=== PATIENT | male | born 1955 | race Caucasian/White ===

== ENCOUNTER 2020-11-11 22:58 | Observation (INO) | payer MEDICARE, SELFPAY ==
[2020-11-11 22:10] VITALS: BP 111/69; PULSE 55; RESP 18; TEMP 35.7; O2SAT 97; BMI 29.6
--- NOTE | 2020-11-11 22:33 | ADMGEN ---
This patient, Ramon Joy, was admitted to IMU Room 203-01. Patient/family oriented to hospital policies and general routines including ID bracelet, bed and alarms, visiting hours, pain management, procedures, bathroom and other care routines, personal items, smoking policy, room service/diet, and visiting hours. Information on how to activate the Rapid Response Team has been discussed. Patient/Family are encouraged to report perceived risks to care and to ask questions if they do not understand what they are told or what they should do. Pt arrived at approximately 2215 by EMS.
[2020-11-11 23:47] VITALS: BP 96/71; PULSE 54; RESP 18; TEMP 36.6; O2SAT 95
[2020-11-12] VITALS (15 sets, daily range): BP systolic 97–122; BP diastolic 62–80; PULSE 52–64; RESP 14–18; TEMP 35.8–36.3; O2SAT 93–97
--- NOTE | 2020-11-12 00:09 | PM.IMHP ---
H&P: HPI History of Present Illness Date/Time: 11/12/20 00:09 Chief Complaint: Jaw claudication, left arm pain Narrative: Ramon Joy is a 65 year old male with past medical history history of CAD, NSTEMI status post KOBE in LAD 03/30/2019, anxiety/depression, gout, diastolic dysfunction without heart failure, mixed hyperlipidemia presents the ED with complaints of left jaw claudication and left arm pain. Patient was cleaning horse stalls when he developed left jaw pain and left arm shoulder and neck pain. He states this episode did not have chest pain but he has had chest pain before he recently. Symptoms are worse with activity. Symptom onset was 3 days ago. On my evaluation patient was asymptomatic. Catheterization report 03/30/2019: Left ventricular ejection fraction 50%, lad mid vessel lesion 99% stenosis with balloon angioplasty, stent placement, balloon angioplasty and had post-stent placement stenosis of 0% and DO grade 3 flow, left circumflex distal vessel lesion 60% stenosis, RCA posterior lateral extension proximal vessel lesion 60% stenosis. Patient also had right coronary mid vessel lesion 30% stenosis. Patient was started on dual anti-platelet therapy aspirin with Plavix. Indications for catheterization were NSTEMI. Echocardiogram 03/31/2019: Left ventricular systolic function lower limit of normal, EF 50-55%, grade 2 diastolic dysfunction, trace mitral regurg. In the ED at [place]: Sodium 130. Lipase, PT, BMP, D-dimer, troponin x1, CBC, viral panel, BNP, PTT all normal or negative. With significant history heart disease, anginal like symptoms, and previous stent placement patient was started on heparin drip despite negative troponin and sent to [facility] for further workup and cardiology coverage. Review of Systems Review of Systems: Narrative: Constitutional: No Fever, No Chills, No Night Sweats, No Fatigue, No Malaise ENT/Mouth: No Hearing Changes, No Ear Pain, No Nasal Congestion, No Sinus Pain, No Hoarseness, No sore throat, No Rhinorrhea, No Swallowing Difficulty. Left jaw pain Eyes: No Eye Pain, No Redness, No Vision Changes Cardiovascular: Endorses occasional left chest pain pressure, No Palpitations, No Dyspnea on Exertion, No Orthopnea, No Claudication, No Edema Respiratory: No Cough, No Sputum, No Wheezing, No Shortness of Breath Gastrointestinal: No Nausea, No Vomiting, No Diarrhea, No Constipation, No Abdominal Pain, No Heartburn, No Hematochezia, No Melena Genitourinary: No Dysuria, No Urinary Frequency, No Hematuria, No Urinary Incontinence, No Urgency Musculoskeletal: Endorses Left upper extremity pain, neck pain, shoulder pain, jaw pain Neuro: No Weakness, No Numbness, No Paresthesias, No Loss of Consciousness, No Syncope, No Dizziness, No Headache Psych: No Anxiety/Panic, No Depression, No Insomnia Heme: No Bruising, No Bleeding Lymph: No Adenopathy Endocrine: No Polyuria, No Polydipsia, No Temperature Intolerance [facility] Past Medical History Medical History (Updated 11/12/20 @ 00:34 by Oswaldo Robert DO) Allergic rhinitis Anxiety and depression Chronic pain of left knee Coronary artery disease Degenerative joint disease (DJD) of lumbar spine Eczema Erectile dysfunction Gout Insomnia NSTEMI (non-ST elevated myocardial infarction) 03/29/2019 Primary osteoarthritis of first carpometacarpal joint of left hand Sensorineural hearing loss (SNHL) of both ears Sleep apnea Tinea corporis Surgical History Surgical History (Updated 11/12/20 @ 00:22 by Oswaldo Robert DO) H/O cardiac catheterization KOBE in LAD 03/30/2019 H/O hand surgery Left thumb DJD Family History Family History (Updated 11/12/20 @ 00:23 by Oswaldo Robert DO) Father , Emphysema, diet from MVA No problems noted. Mother , Open heart surgery No problems noted. Other Heart disease Social History Social History (Updated 11/12/20 @ 00:25 by Ayala
[2020-11-12 01:13] LABS: Troponin I < 0.012 ng/mL (0.000-0.034)
--- NOTE | 2020-11-12 02:08 | ADMGEN ---
This patient, Ramon Joy, was admitted to IMU Room 203-01 AT 0145. Patient/family oriented to hospital policies and general routines including ID bracelet, bed and alarms, visiting hours, pain management, procedures, bathroom and other care routines, personal items, smoking policy, room service/diet, and visiting hours. Information on how to activate the Rapid Response Team has been discussed. Patient/Family are encouraged to report perceived risks to care and to ask questions if they do not understand what they are told or what they should do.
[2020-11-12 03:50] LABS: Cholesterol 142 mg/dL (0-200); HDL Direct 36 mg/dL; Triglycerides 208 mg/dL (<150)
[2020-11-12 04:02] LABS: LDL Cholesterol Direct 75 mg/dL; Troponin I < 0.012 ng/mL (0.000-0.034)
[2020-11-12 07:33] LABS: Anion Gap 9 mmol/L (8-16); Blood Urea Nitrogen 21 mg/dL (9-20); Calcium 9.1 mg/dL (8.4-10.2); Carbon Dioxide 25 mmol/L (22-30); Chloride 102 mmol/L (98-107); Estimated CRCL calculation 75 ml/min; Estimated Glomerular Filt Rate > 60; Glucose 116 mg/dL (75-110); Magnesium 2.1 mg/dL (1.6-2.3); Potassium 3.4 mmol/L (3.4-5.0); Sodium 136 mmol/L (137-145)
--- NOTE | 2020-11-12 08:41 | PM.CNCAR ---
Assessment and Plan Assessment and plan (1) Unstable angina: Code(s): I20.0 - Unstable angina Status: Acute Assessment and Plan: Patient had a previous catheterization 2008 he had a stent to the LAD. At that time distal circumflex had 60% and right posterolateral branch 60% who comes with typical anginal symptoms suggestive of unstable angina. patient takes Plavix at home. He follows up with Cardiology at [facility]. risks and benefits of cardiac catheterization discussed with the patient agrees to proceed. History of Present Illness History of Present Illness Consult date/time: Date of pvbcaid64/17/20 08:41 Requesting physician: Mega Gonzales MD Consult reason: chest pain Reason For Visit: Chest Pain Narrative: This is 65-year-old patient with past medical history history of CAD, NSTEMI status post KOBE in LAD 03/30/2019Using 3.5 x 23 drug-eluting stent, previous tobacco abuse,anxiety/depression, gout, diastolic dysfunction without heart failure, mixed hyperlipidemia presents the ED with complaints of left jaw claudication and left arm pain. Patient was cleaning horse stalls when he developed left jaw pain and left arm shoulder and neck pain. this started 3 days ago. Associated with shortness of breath. Denies fever , chills, edema troponins x3 negative. EKG normal interpreted myself. Review of Systems Constitutional: Constitutional: Denies chills, Denies fever(s) and Denies poor appetite Eyes: Eyes: Denies eye discharge, Denies loss of vision, Denies eye pain and Denies photophobia ENT: Denies dizziness, Denies epistaxis, Denies nasal congestion and Denies sore throat Cardiovascular: Cardiovascular: Reports chest pain, Denies syncope, Denies pedal edema, Denies leg edema, Denies palpitations, Reports dyspnea, Reports dyspnea on exertion and Denies orthopnea Respiratory: Respiratory: Denies cough, Reports dyspnea and Denies wheezing Gastrointestinal: Gastrointestinal: Denies abdominal pain, Denies diarrhea, Denies nausea and Denies vomiting Genitourinary: Genitourinary: Denies hematuria, Denies genital lesions and Denies dysuria Musculoskeletal: Musculoskeletal: Denies arthralgias, Denies joint swelling and Denies numbness Integumentary/Breasts: Skin/Breast: Denies pruritus and Denies rash Neurologic: Denies dizziness, Denies syncope, Denies loss of vision and Denies numbness Psychiatric: Psychiatric: Denies anxiety and Denies depression Endocrine: Endocrine: Denies cold intolerance, Denies heat intolerance and Denies palpitations Hematologic/Lymphatic: Hematologic/Lymphatic: Denies easy bleeding and Denies easy bruising Allergic/Immunologic: Allergic/Immunologic: Denies urticaria and Denies wheezing [facility] Past Medical History Medical History Allergic rhinitis Anxiety and depression Chronic pain of left knee Coronary artery disease Degenerative joint disease (DJD) of lumbar spine Eczema Erectile dysfunction Gout Insomnia NSTEMI (non-ST elevated myocardial infarction) 03/29/2019 Primary osteoarthritis of first carpometacarpal joint of left hand Sensorineural hearing loss (SNHL) of both ears Sleep apnea Tinea corporis Surgical History Surgical History H/O cardiac catheterization KOBE in LAD 03/30/2019 H/O hand surgery Left thumb DJD Family History Family History Father , Emphysema, diet from MVA No problems noted. Mother , Open heart surgery No problems noted. Other Heart disease Social History Social History Social History: Retired, physically active taking care of horses Smoking packs per day: 1.5 Smoking cigarettes per day: 30.0 Years smoked: 44 Smoking pack-years: 66.00 Smoking status: Former smo
[2020-11-12] MEDS: METOPROLOL TARTRATE 12.5 MG TABLET PO (09:04)
[2020-11-12] MEDS: allopurinoL 300 MG TABLET PO (09:04)
[2020-11-12] MEDS: DULoxetine HCL 60 MG CAPSULE.DR PO (09:04)
[2020-11-12] MEDS: busPIRone HCL 5 MG TABLET PO (09:05)
[2020-11-12] MEDS: ATORVASTATIN 40 MG TABLET 80 MG PO (09:05)
[2020-11-12] MEDS: FLUoxetine HCL 20 MG CAPSULE PO (09:05)
[2020-11-12] MEDS: busPIRone HCL 2.5 MG TABLET PO (09:06)
--- NOTE | 2020-11-12 11:05 | PM.IMPN ---
Progress Note: A&P Assessment and Plan (1) Unstable angina: Code(s): I20.0 - Unstable angina Status: Acute Assessment and Plan: Presented with left jaw and left arm pain but adamantly. Patient received aspirin and Heparin drip prior to arrival; heparin has been stopped Currently asymptomatic. Dr. Johnson (Cardiology) has been consulted and appreciate input. Troponins negative x 3. Await further rec from Cardiology Monitor Will need follow up with his Coach Wirer; has appointment set up in November Additional Plan # other chronic conditions anxiety/depression: BuSpar, Xanax, Cymbalta, Prozac gout: Allopurinol hyperlipidemia: Lipitor CAD, status post NSTEMI 03/30/2020 with KOBE in LAD: Plavix, nitroglycerin hypertension: Lopressor DJD: Tramadol, prednisone insomnia: Trazodone grade 2 diastolic dysfunction without heart failure Subjective Date/time seen: 11/12/20 11:05 Interval history: Patient is a 65 yo M with history of CAD, NSTEMI status post KOBE in LAD 03/30/2019, anxiety/depression, gout, diastolic dysfunction without heart failure, mixed hyperlipidemia who is seen in follow up for evaluation of left jaw and left arm pain. Patient states his symptoms have resolved and has no complaints for me today. He noted sweats, cough, and feeling cold during his episode yesterday, but states that he always feels cold as of recently; no chest pain/palpitations, nausea/vomiting at time of episode, lightheadedness. Denies current subjective f/c/s, myalgias/arthralgias, headaches, dizziness, lightheadedness, changes in v/h, current cp/palpitations, sob/cough, n/v/d/c, abd pain, changes in BMs, dysuria, hematuria, cloudy urine, calf pain/swelling. Review of Systems Review of Systems: All systems reviewed & are unremarkable except as noted in HPI and below Exam Narrative: Exam Narrative: General: Patient resting supine in bed in no acute distress. HEENT: Normocephalic, EOMI, oral mucosa moist. Neck: No lymphadenopathy appreciated, thyroid normal Cardiovascular: Rate and rhythm are regular. No notable murmur, rub, or gallop. Tele shows NSR with occasional sinus bradycardia; asymptomatic Respiratory: Lungs clear to auscultation all vizcarra. Non-labored breathing. Abdomen: Soft, non-tender, non-distended, bowel sounds present. Extremities: Peripheral pulses intact. No edema. Neuro: No focal neurological deficits. Speech is clear. Objective Data Vital Signs Vital Signs: Last Vital Signs Temp 97.4 F L 11/12/20 08:00 Pulse 56 L 11/12/20 10:00 Resp 16 11/12/20 08:00 BP 112/72 11/12/20 08:00 Pulse Ox 97 11/12/20 08:00 Intake/Output Intake/Output: Intake & Output 11/09/20 11/10/20 11/11/20 11/12/20 23:59 23:59 23:59 23:59 Intake Total 222 Output Total 375 Balance -153 Meds/Results Medications: Active Medications Generic Name Dose Route Start Last Admin Trade Name Freq PRN Reason Stop Dose Admin Allopurinol 300 mg 11/12/20 08:00 11/12/20 09:04 Allopurinol 300 Mg Tablet PO 300 mg DAILY@0800 SLICK Administration Alprazolam 0.5 mg 11/12/20 00:13 Alprazolam (*Crx) 0.5 Mg Tablet PO BID PRN Anxiety Atorvastatin Calcium 80 mg 11/12/20 09:00 11/12/20 09:05 Atorvastatin 40 Mg Tablet PO 80 mg DAILY SLICK Administration Buspirone HCl 5 mg 11/12/20 09:00 11/12/20 09:05 Buspirone Hcl 5 Mg Tablet PO 5 mg Q12HR SLICK Administration Buspirone HCl 2.5 mg 11/12/20 09:00 11/12/20 09:06 Buspirone Hcl 2.5 Mg Tablet PO 2.5 mg Q12HR SLICK Administration Duloxetine HCl 60 mg 11/12/20 09:00 11/12/20 09:04 Duloxetine Hcl 60 Mg Capsule.Dr PO 60 mg QAM SLICK Administration Fluoxetine HCl 20 mg 11/12/20 09:00 11/12/20 09:05 Fluoxetine Hcl 20 Mg Capsule PO 20 mg BID SLICK Administration Metoprolol Tartrate 12.5 mg 11/12/20 09:00 11/12/20 09:04 Metoprolol Tartrate 12.5 Mg
--- NOTE | 2020-11-12 11:12 | ECG_ITS ---
Measurements Intervals [place] Rate: 54 P: 53 AK: 172 QRS: 13 QRSD: 99 T: 49 QT: 452 QTc: 431 Interpretive Statements SINUS BRADYCARDIA MINIMAL Q WAVES- INFERIOR LEADS BORDERLINE ECG Electronically Signed On 11-12-2020 11:20:59 [employer] by Billy Hatch D.O.
--- NOTE | 2020-11-12 11:35 | P.PCNCC_ITS ---
Cardiac Cath Procedure Note Date of procedure:: 11/12/20 Performing physician:: Moreno Johnson MD date of service 11/12/2020 Indication:: unstable angina Brief clinical history:: 65-year-old patient who has a history of LAD stent March 2019, hypertension, hyperlipidemia and previous tobacco use presents to the hospital with jaw pain on exertion for the last 3 days Procedure Procedure performed:: 1-Moderate sedation that started at 12 pm and ended at 12:22 p.m. using 5mg of Versed and 100mcg fentanyl. The registered nurse was edwin lindquist 2-Selective left and right coronary angiogram. 3-Left heart catheterization with measurement of LVEDP and measurement of gradient across aortic valve. 3- LV angiogram. 4-Right common femoral arterial angiogram. 5-Deployment of 6 [place] Angio-Seal. Sedation/Medication given:: Moderate sedation. Access site:: Right common femoral artery. Estimated blood loss:: 10cc Procedure note:: After informed consent patient was brought in to metallurgy laboratory technician with the was draped and prepped in usual manner. Moderate sedation was given and the right groin was infiltrated using 1% lidocaine. Five [place] sheath was obtained using micropuncture needle and the modified Seldinger technique. Selective left coronary angiogram was done using JL4 catheter with the tip of the catheter placed in the left main coronary artery. Selective right coronary angiogram was done using JR4 catheter with the tip of the catheter placed to the right coronary artery. After that 5 [place] pigtail catheter was advanced across the aortic valve into the left ventricle with measurement of LVEDP and measurement of gradient across aortic valve. Right common femoral arterial angiogram was done. Findings:: 1- left coronary artery is a large artery that divides into large LAD, large circumflex artery. Left main is free of disease. 2- left anterior descending artery is a large artery that runs and wraps around the apex. Has patent stent proximally. The vessel has minimal irregularities. a couple of small diagonal branches had minimal irregularities 3- leftcircumflex artery is a large artery. Has minimal irregularities . medium size OM with minimal irregularities. 4- right coronary artery is large artery and dominant with minimal irregularities. 5- LVEDP was 5 mm Hg and no gradient across aortic valve. 6- opening arterial pressure was 107/70 and closing pressure was 119/76 7- right femoral artery angiogram shows no significant disease in the right common femoral artery. 8- LV angiogram normal LV systolic function with estimated ejection fraction 65% and no wall motion abnormalities. Conclusion:: 1- patent stent proximal LAD. 2- minimal coronary irregularities. 3- in 2019 the catheter port talked about distal left circumflex artery of 60% and right posterolateral branch 60% however on today's catheterization I do not see evidence of these lesions. Assessment and Plan Additional Plan Continue aggressive risk factor modification for CAD.
[2020-11-12] MEDS: SODIUM CHLORIDE 0.9% IV 1,000 ML 125 ML IV CONT (14:00)
[2020-11-12] MEDS: predniSONE 5 MG TABLET PO (15:21)
[2020-11-12] MEDS: CLOPIDOGREL BISULFATE 75 MG TABLET PO (15:21)
--- NOTE | 2020-11-12 16:03 | PM.DS ---
DS: Admitting Diagnosis Admitting Diagnosis Admitting Diagnosis: Jaw claudication/left arm pain DS: Discharge Diagnosis Discharge Diagnosis (1) Unstable angina: Code(s): I20.0 - Unstable angina Status: Acute Assessment and Plan: Presented with left jaw and left arm pain but adamantly. Patient received aspirin and Heparin drip prior to arrival; heparin has been stopped Currently asymptomatic. Dr. Johnson (Cardiology) has been consulted and appreciate input. Troponins negative x 3. Cardiac cath performed today 11/12/20; 1- patent stent proximal LAD. 2- minimal coronary irregularities. 3- in 2019 the catheter port talked about distal left circumflex artery of 60% and right posterolateral branch 60% however on today's catheterization I do not see evidence of these lesions. Will need follow up with his Inside Account Executive in 1-2 weeks Okay for discharge from Cardiology standpoint DS: Summary Hospital Course Reason for hospitalization: Left jaw and arm pain Hospital Course: Date of arrival: 11/11/20 Date of discharge: 11/12/20 Patient is a 65 yo M with history of CAD, NSTEMI status post KOBE in LAD 03/30/2019, anxiety/depression, gout, diastolic dysfunction without heart failure, mixed hyperlipidemia presented [facility] ED ([place]) with complaints of left jaw claudication and left arm pain. In the ED at [facility]: Sodium 130. Lipase, PT, BMP, D-dimer, troponin x1, CBC, viral panel, BNP, PTT all normal or negative. With significant history heart disease, anginal like symptoms, and previous stent placement patient was started on heparin drip despite negative troponin and sent to [facility] for further workup and cardiology coverage. Patient was admitted to the hospitalist service for further management/treatment. Patient was evaluated by Dr. Johnson (Cardiology) here at [place] and underwent a cardiac cath on 11/12 with below findings. Patient was okay for discharge after cardiac cath given the below findings, negative troponins, and resolution of symptoms. Patient was to follow up with his group therapist in 1-2 weeks; CD of cath was provided prior to discharge for him to take to his group therapist. He was to follow up with his PCP as well. Patient agreeable and comfortable with plan for discharge. Patient hemodynamically stable and in improved condition for discharge on 11/12 Cardiac Cath Findings 11/12/20: 1- patent stent proximal LAD. 2- minimal coronary irregularities. 3- in 2018 the catheter port talked about distal left circumflex artery of 60% and right posterolateral branch 60% however on today's catheterization I do not see evidence of these lesions. Status at Discharge Overall status at discharge: patient is progressing back to baseline Time Spent with Patient Time attestation: Total time spent providing and/or coordinating discharge services: Time spent: Greater than 30 minutes Exam Narrative: Exam Narrative: General: Patient resting supine in bed in no acute distress. HEENT: Normocephalic, EOMI, oral mucosa moist. Neck: No lymphadenopathy appreciated, thyroid normal Cardiovascular: Rate and rhythm are regular. No notable murmur, rub, or gallop. Tele shows NSR with occasional sinus bradycardia; asymptomatic Respiratory: Lungs clear to auscultation all vizcarra. Non-labored breathing. Abdomen: Soft, non-tender, non-distended, bowel sounds present. Extremities: Peripheral pulses intact. No edema. Neuro: No focal neurological deficits. Speech is clear. DS: Data Data Completed and Pending Labs on day of discharge: Laboratory Tests 11/12/20 03:28 Last Vital Signs Temp 96.5 F L 11/12/20 15:30 Pulse 64 11/12/20 15:30 Resp 18 11/12/20 15:30 BP 112/71 11/12/20 15:30 Pulse Ox 94 11/12/20 15:30 Cardiac Cath Findings 11/12/20: 1- patent stent proximal LAD. 2- minimal coronary irregularities. 3- in 2018 the catheter port t
== END 2020-11-12 17:54 | disposition home or self-care (01) ==
PROVIDERS: Internal Medicine Cardiovascular Disease; Physician Assistant; Student in an Organized Health Care Education/Training Program; Admitting Provider Internal Medicine; Visit Provider Internal Medicine
PROC: 4A023N7 Measurement of Cardiac Sampling and Pressure, Left Heart, Percutaneous Approach (ICD-10-PCS; CPT 93452; principal; 2020-11-12 12:00)
DX: I20.0 Unstable angina (principal); R06.02 Shortness of breath; I25.2 Old myocardial infarction; F41.8 Other specified anxiety disorders; E78.2 Mixed hyperlipidemia; I11.9 Hypertensive heart disease without heart failure; G47.30 Sleep apnea, unspecified; Z95.5 Presence of coronary angioplasty implant and graft; Z79.02 Long term (current) use of antithrombotics/antiplatelets; Z87.891 Personal history of nicotine dependence
CPT/HCPCS: 36415; 80048; 80061; 83735; 84484; 85730; 93005; 93458; A9270; C1760; C1887; C1894; G0269; G0378; G0379; J1644; J2250; J3010; J7030; J7040; J7512